=== PATIENT | male | born 1960 | race Caucasian/White ===

== ENCOUNTER 2019-04-01 15:50 | Emergency (ER) | payer OTHER ==
[2019-04-01 16:16] VITALS: BP 120/72; PULSE 64; TEMP 98; BMI 24.3
[2019-04-01 16:59] LABS: BASO % 0.3 % (0-2.0); EOS % 0.6 % (0-4.5); HEMATOCRIT 41.3 % (35.4-49); HEMOGLOBIN 13.4 GM/dl (11.7-16.9); LYMPH % 20.9 % (8-40); MCH 28.8 pg (25.7-33.7); MCHC 32.5 g/dl (32.0-35.9); MEAN CELL VOLUME 88.6 fl (80-96); MONO % 7.9 % (3.8-10.2); NEUT % 70.3 % (42.8-82.8); PLATELET COUNT 206 K/MM3 (134-434); RBC 4.66 M/mm3 (4.00-5.60); RDW 11.9 % (11.9-15.9); WHITE BLOOD COUNT 7.3 K/mm3 (4.0-10.8)
--- NOTE | 2019-04-01 17:02 | PDOC ---
Documentation entered by Nafisa Hill SCRIBE, acting as scribe for Nellie Perez MD. Nellie Perez MD: This documentation has been prepared by the Sergio dorado Aiswarya, SCRIBE, under my direction and personally reviewed by me in its entirety. I confirm that the documentation accurately reflects all work, treatment, procedures, and medical decision making performed by me. History of Present Illness - General Chief Complaint: Pain Stated Complaint: RLQ ABD PAIN WITH LUMP Time Seen by Provider: 04/01/19 15:55 History Source: Patient Exam Limitations: No Limitations - History of Present Illness Initial Comments: 04/01/19 16:33 The patient is a 58 year old male, with no significant PMH, who presents to the emergency department with abdominal pain that began last night. The patient states he was lying on his bed when he had a sudden onset of lower abdominal pain. He states he felt a lump to the right lower quadrant and wanted to rule out appendicitis. Patient endorses associated symptoms of lightheadedness and mild discomfort defecating/urinating this morning. The patient denies chest pain , shortness of breath, headache and dizziness.Denies fever, chills, nausea, vomit, diarrhea and constipation.Denies frequency, urgency and hematuria. Allergies: NKDA Past surgical history: None reported Social history: None reported PCP: None reported Past History - Past Medical History Allergies/Adverse Reactions: Allergies Allergy/AdvReac Type Severity Reaction Status Date / Time No Known Allergies Allergy Verified 04/01/19 15:53 Home Medications: Ambulatory Orders NK [No Known Home Medication] 04/01/19 COPD: No - Psycho Social/Smoking Cessation Hx Smoking History: Never smoked Have you smoked in the past 12 months: No Information on smoking cessation initiated: No Hx Alcohol Use: No Drug/Substance Use Hx: No Review of Systems - Review of Systems Able to Perform ROS?: Yes Comments:: 04/01/19 16:33 GENERAL/CONSTITUTIONAL: No fever or chills. No weakness. HEAD, EYES, EARS, NOSE AND THROAT: No change in vision. No ear pain or discharge. No sore throat. GASTROINTESTINAL: +RLQ pain. No nausea, vomiting, diarrhea or constipation. GENITOURINARY: No dysuria, frequency, or change in urination. NEUROLOGIC: +lightheadedness. No headache, loss of consciousness, or change in strength/sensation. ENDOCRINE: No increased thirst. No abnormal weight change. HEMATOLOGIC/LYMPHATIC: No anemia, easy bleeding, or history of blood clots. ALLERGIC/IMMUNOLOGIC: No hives or skin allergy. *Physical Exam - Vital Signs Last Vital Signs Temp Pulse Resp BP Pulse Ox 98 F 64 20 120/72 100 04/01/19 15:52 04/01/19 15:52 04/01/19 15:52 04/01/19 15:52 04/01/19 15:52 - Physical Exam 04/01/19 16:34 GENERAL: Awake, alert, and fully oriented, in no acute distress HEAD: No signs of trauma LUNGS: Breath sounds equal, clear to auscultation bilaterally. No wheezes, and no crackles HEART: Regular rate and rhythm, normal S1 and S2, no murmurs, rubs or gallops ABDOMEN: Soft, nontender, normoactive bowel sounds. No guarding, no rebound. No masses NEUROLOGICAL: Normal speech. SKIN: Warm, Dry, normal turgor, no rashes or lesions noted. ED Treatment Course - LABORATORY CBC & Chemistry Diagram: 04/01/19 16:30 04/01/19 16:30 Medical Decision Making - Medical Decision Making 04/01/19 16:56 Pt presents to the ED complaining of suprapubic pain that then traveled to his RLQ. Patient also complains of some urinary hesitancy. No abdominal tenderness to deep palpation on exam. Differential includes UTI, less likely appendicitis or diverticulitis. Will check labs and UA, consider CT abdomen pelvis if UA is negative. 04/01/19 18:[address] and lab work are normal. Will discharge home. Discharge - Discharge Information Problems reviewed: Yes Clinical Impression/Diagnosis: Abdominal pain Qualifiers: Abdominal location: right lower quadrant Qualified Code(s): R10.31 - Right lower quadrant pain Condition: Good Disposition: HOME - Admission No - Follow up/Referral - Patient Discharge Instructions Patient Printed Discharge Instructions: DI for Abdominal Pain-Adult Additional Instructions: you came to the ED complaining of pain in your abdomen. We did a cat scan and blood work, which was normal. you should return to the Ed for fever, severe pain, bloody vomit or stool, other new or worsening symptoms. make sure that you call your doctor for follow up tomorrow. - Post Discharge Activity
[2019-04-01 17:06] LABS: ALBUMIN 4.1 g/dl (3.4-5.0); BILIRUBIN,TOTAL 0.7 mg/dl (0.2-1); CREATININE 0.9 mg/dl (0.55-1.3); POTASSIUM 4.1 mmol/L (3.5-5.1); TOT PROT 6.9 g/dl (6.4-8.2)
== END 2019-04-01 19:15 | disposition home or self-care (01) ==
LOC: FER 15:50
DX: R10.31 Right lower quadrant pain (principal)
CPT/HCPCS: 36415; 74177-TC; 80053; 81003; 85025; 99282-25; Q9967